=== PATIENT | male | born 1975 | race African-American/Black ===

== ENCOUNTER 2018-08-19 13:30 | Emergency (ER) | payer OTHER ==
[~2018-08-19] VITALS: Ht 180.3 cm; Wt 104.3 kg
[2018-08-19 13:42] VITALS: BP 132/87
--- NOTE | 2018-08-19 14:18 | Emergency Room Report ---
History of Present Illness General Chief Complaint: Upper Respiratory Illness Present Illness HPI 43-year-old male presents to the emergency department complaining bilateral ear pain, sinus pressure headache and nasal congestion 4 days. Patient reports intermittent every once in a while. Patient denies sore throat he reports history of asthma as well as allergies. Patient states that his sister removed in and brought for With her when she is allergic to. Patient denies fevers or chills recent travel or other ill contacts. Patient denies neck pain or stiffness she denies sudden onset of his headache. Pt. rates his pain at the moment as 1 out of 10 in severity however he states it can become 6 out of 10 in severity. States that hearing is somewhat muffled he denies discharge in the ear recent underwater submergent. Patient denies external ear tenderness. Allergies: Coded Allergies: PENICILLINS (Verified Allergy, Severe, Itching, 08/19/18) Patient History Past Medical History: see triage record Past Surgical History: none Pertinent Family History: none Social History: Reports: smoking - THC Immunizations: UTD Reviewed Nursing Documentation: PMH: Agreed; PSxH: Agreed Review of Systems All Other Systems: negative except mentioned in HPI Physical Exam Vital Signs Date Time Temp Pulse Resp B/P (MAP) Pulse Ox O2 Delivery O2 Flow Rate FiO2 08/19/18 13:35 98.7 74 20 135/89 95 Room Air 98.8 Sp02 EP Interpretation: reviewed, normal General Appearance: no apparent distress, alert, GCS 15, non-toxic Head: normocephalic, atraumatic Eyes: bilateral eye normal inspection, bilateral eye PERRL ENT: hearing grossly normal, normal voice, TMs + canals normal, uvula midline, moist mucus membranes, nasal congestion, other - no erythema , some bulging bilaterally, moderate nasal congestion, Canals are WNL bilaterally. Neck: full range of motion Respiratory: chest non-tender, lungs clear, normal breath sounds, no respiratory distress, no wheezing, speaking full sentences Cardiovascular #1: regular rate, rhythm Musculoskeletal: back normal, gait/station normal, normal range of motion Neurologic: alert, oriented x3, responsive, motor strength/tone normal, sensory intact, normal gait, speech normal, grossly normal Psychiatric: judgement/insight normal Skin: normal color, no rash, warm/dry, well hydrated Lymphatic: no adenopathy Medical Decision Making PA Attestation Dr. calixto is my supervising Physician whom patient management has been discussed with. Diagnostic Impression: Primary Impression: Nasal sinus congestion Additional Impression: Ear ache ER Course 43-year-old male presents to the emergency department complaining bilateral ear pain, sinus pressure headache and nasal congestion 4 days. Patient reports intermittent every once in a while. Patient denies sore throat he reports history of asthma as well as allergies. Patient states that his sister removed in and brought for With her when she is allergic to. Patient denies fevers or chills recent travel or other ill contacts. Patient denies neck pain or stiffness she denies sudden onset of his headache. Pt. rates his pain at the moment as 1 out of 10 in severity however he states it can become 6 out of 10 in severity. States that hearing is somewhat muffled he denies discharge in the ear recent underwater submergence. Patient denies external ear tenderness. Ddx considered but are not limited to OM, OE, mastoiditis, TM perforation, FB, sinusitis, Congestion just to name a few. Vital signs: are WNL, pt. is afebrile H&PE are most consistent with sinus congestion, non-bacterial with sinus pressure CABRAL and Ear pain. ORDERS: none required at this time, the diagnosis is clinical -OTOSCOPY: no erythema , some bulging bilaterally, moderate nasal congestion, Canals are WNL bilaterally. ED INTERVENTIONS: None required at this time. DISCHARGE: At this time pt. is stable for d/c to home. With conservative treatment. Will provide printed patient care instructions, and any necessary prescriptions. Care plan and follow up instructions have been discussed with the patient prior to discharge. RX: decongestant, and anti-histamine Last Vital Signs Date Time Temp Pulse Resp B/P (MAP) Pulse Ox O2 Delivery O2 Flow Rate FiO2 08/19/18 13:35 98.7 74 20 135/89 95 Room Air 98.8 Disposition: HOME, SELF-CARE Condition: Stable Patient Instructions: Earache, Sinus Headache, [id number] Additional Instructions: Take medications as directed. DO NOT USE AFRIN FOR MORE THAN 3 CONSECUTIVE DAYS. Follow up with a Primary Care Provider in 3-5 days, even if your symptoms have resolved. --Please review list of primary care clinics, if you do not already have a primary care provider Return sooner to ED if new symptoms occur, or current symptoms become worse. - Please note that this Emergency Department Report was dictated using [employer] engineering technician technology software, occasionally this can lead to erroneous entry secondary to interpretation by the dictation equipment. Rayna Anaya Aug 19, 2018 14:18
[2018-08-19] MEDS ORDERED: AFRIN NASAL SPR30 ML NASAL (14:20)
[2018-08-19] MEDS ORDERED: ZYRTEC-D TABLE1 EACH ORAL (14:20)
[2018-08-19] MEDS ORDERED: TYLENOL EXTRA500 MG ORAL (14:20)
[2018-08-19 14:24] VITALS: BP 132/87
== END 2018-08-19 14:24 | disposition home or self-care (01) ==
LOC: EMR 14:19
DX: R09.81 Nasal congestion (principal); H92.03 Otalgia, bilateral; F12.90 Cannabis use, unspecified, uncomplicated; J45.909 Unspecified asthma, uncomplicated; Z88.0 Allergy status to penicillin
CPT/HCPCS: 99282